=== PATIENT | female | born 1955 | race Hispanic/Latino ===

== ENCOUNTER 2017-10-05 23:51 | Emergency (ER) | payer SELFPAY ==
[~2017-10-05 23:51] MED LIST: AMLO5TAB4 PO; ASPI-1005 PO; LEVO500T2 PO; LISI-613 PO; METF10004 PO; METR500T PO; PRAV40TA3 PO
[2017-10-06] MEDS ORDERED: ACETAMINOPHEN-CODEINE ELIXIR 5 ML UDCUP ONE (00:03)
[2017-10-06 00:14] LABS: APPEARANCE,URINE Clear (CLEAR); BILIRUBIN,URINE Negative (NEGATIVE); COLOR,URINE Yellow (YELLOW); GLUCOSE, URINE (UA) 250 mg/dL (NEGATIVE); KETONES,URINE Negative (NEGATIVE); LEUKOCYTE ESTERASE ,URINE Trace (NEGATIVE); NITRATE,URINE Negative (NEGATIVE); OCCULT BLOOD,URINE Trace (NEGATIVE); PH,URINE >=9.0 (5.0-8.0); PROTEIN,URINE Negative (NEGATIVE); UROBILINOGEN,URINE 0.2 mg/dL (0.2-1.0)
[2017-10-06 00:26] LABS: BACTERIA,URINE Rare /HPF (None Seen); RBC,URINE 0-1 /HPF (0-1); SQUAMOUS EPITHELIAL CELL,UR 0-2 /HPF (0-2); WBC,URINE 0-1 /HPF (0-1)
[2017-10-06 00:27] LABS: BASOPHILS % (AUTO) 0.8 % (0.0-5.0); HEMATOCRIT 37.4 % (36-48); LYMPHOCYTES % (AUTO) 31.1 % (21.0-51.0); MEAN CORPUSCULAR HEMOGLOBIN 27.4 pg (27.0-33.0); MEAN CORPUSCULAR HGB CONC 33.2 g/dL (32.0-36.0); MEAN CORPUSCULAR VOLUME 82.4 fL (79-99); MONOCYTES % (AUTO) 5.6 % (3.0-13.0); NEUTROPHILS % (AUTO) 61.5 % (40.0-77.0); PLATELET COUNT (AUTO) 356 K/uL (130-400); RED BLOOD CELL COUNT(AUTO) 4.53 MIL/uL (4.00-5.50); RED CELL DISTRIBUTION WIDTH 13.7 % (11.0-15.5); WHITE BLOOD COUNT (AUTO) 11.1 K/uL (4.8-10.8)
[2017-10-06 00:40] LABS: CREATININE 0.8 mg/dL (0.5-1.5); POTASSIUM 3.7 mmol/L (3.5-5.1)
[2017-10-06 00:44] LABS: ALBUMIN 4.2 g/dL (3.5-5.0); BILIRUBIN,TOTAL 0.3 mg/dL (0.2-1.0); TOTAL PROTEIN, SERUM 8.1 g/dL (6.0-8.3)
[2017-10-06] MEDS ORDERED: SODIUM CHLORIDE 0.9% 1000ML 1,000 ML IV ONE (00:53)
[2017-10-06] MEDS ORDERED: IOPAMIDOL-370 75 ML VIAL IV ONE (00:57)
== END 2017-10-06 02:42 | disposition home or self-care (01) ==
LOC: EDH 23:51
DX: K52.9 Noninfective gastroenteritis and colitis, unspecified (principal); I10 Essential (primary) hypertension; E11.9 Type 2 diabetes mellitus without complications; Z88.6 Allergy status to analgesic agent; Z90.710 Acquired absence of both cervix and uterus; Z90.49 Acquired absence of other specified parts of digestive tract
CPT/HCPCS: 36415; 74177; 80053; 81001; 83690; 84484; 85025; 93005; 96360; 96361; 99285; J7030; Q9967

== ENCOUNTER 2018-03-02 10:25 | Emergency (ER) | payer SELFPAY ==
[~2018-03-02 10:25] MED LIST changes: +METF-446 PO; -METF10004 PO
[2018-03-02 10:49] LABS: APPEARANCE,URINE Clear (CLEAR); BILIRUBIN,URINE Negative (NEGATIVE); COLOR,URINE Yellow (YELLOW); GLUCOSE, URINE (UA) Negative (NEGATIVE); KETONES,URINE Trace mg/dL (NEGATIVE); LEUKOCYTE ESTERASE ,URINE Trace (NEGATIVE); NITRATE,URINE Negative (NEGATIVE); OCCULT BLOOD,URINE Moderate (NEGATIVE); PROTEIN,URINE POS 1+ (NEGATIVE)
[2018-03-02 10:58] LABS: BACTERIA,URINE Rare /HPF (None Seen); WBC,URINE 0-1 /HPF (0-1)
[2018-03-02 10:59] LABS: MUCUS,URINE Few LPF (None Seen)
[2018-03-02] MEDS ORDERED: KETOROLAC TROMETHAMINE 15MG/ML ONE (11:11)
== END 2018-03-02 12:54 | disposition home or self-care (01) ==
LOC: EDH 10:25
DX: M62.838 Other muscle spasm (principal); M54.5 Low back pain; E11.9 Type 2 diabetes mellitus without complications; I10 Essential (primary) hypertension; Z88.6 Allergy status to analgesic agent; Z91.018 Allergy to other foods
CPT/HCPCS: 74176; 81001; 96372; 99285; J1885

== ENCOUNTER 2022-09-04 18:34 | Observation (INO) | payer OTHER ==
[~2022-09-04] VITALS: Ht 162.6 cm; Wt 61.2 kg
[~2022-09-04 18:34] MED LIST changes: -LISI-613 PO; +LISI20TA24 PO
[2022-09-04 18:47] LABS: BASOPHILS % (AUTO) 0.3 % (0.0-5.0); EOSINOPHILS % (AUTO) 1.1 % (0.0-8.0); HEMATOCRIT 40.1 % (36-48); LYMPHOCYTES % (AUTO) 32.3 % (21.0-51.0); MEAN CORPUSCULAR HGB CONC 32.9 g/dL (32.0-36.0); MONOCYTES % (AUTO) 8.1 % (3.0-13.0); NEUTROPHILS % (AUTO) 57.9 % (40.0-77.0); PLATELET COUNT (AUTO) 366 K/uL (130-400); RED BLOOD CELL COUNT(AUTO) 4.72 MIL/uL (4.00-5.50); RED CELL DISTRIBUTION WIDTH 13.2 % (11.0-15.5); WHITE BLOOD COUNT (AUTO) 9.5 K/uL (4.8-10.8)
[2022-09-04 18:56] LABS: CREATININE 0.6 mg/dL (0.5-1.5); POTASSIUM 3.5 mmol/L (3.5-5.1)
[2022-09-04 19:04] LABS: ALBUMIN 4.2 g/dL (3.5-5.0); MAGNESIUM 1.8 mg/dL (1.80-2.40); TOTAL PROTEIN, SERUM 8.2 g/dL (6.0-8.3)
[2022-09-04] MEDS ORDERED: ONDANSETRON 4MG INJ IV PRN (22:00)
[2022-09-04] MEDS ORDERED: MORPHINE 4 MG SYG IV PRN (22:00)
[2022-09-04] MEDS ORDERED: ACETAMINOPHEN 325 MG TAB PO PRN ×2 (22:00)
[2022-09-04] MEDS ORDERED: NITROGLYCERIN 1GM OINT 1 INCH/1GM TD SCH (22:00)
[2022-09-04] MEDS ORDERED: ASPIRIN 81MG CHEW TAB PO ONE (22:00)
[2022-09-04] MEDS ORDERED: MORPHINE 2 MG SYG IV PRN (22:00)
[2022-09-04 22:18] LABS: CREATININE 0.6 mg/dL (0.5-1.5)
[2022-09-05 01:15] VITALS: BP 163/77
[2022-09-05] MEDS ORDERED: LOSA50TA64 PO (02:02)
[2022-09-05] MEDS ORDERED: GLIP5TAB11 PO (02:02)
[2022-09-05] MEDS ORDERED: AMLO-257 PO (02:02)
[2022-09-05] MEDS ORDERED: OMEP20CA12 PO (02:02)
[2022-09-05] MEDS ORDERED: METF-446 PO (02:02)
[2022-09-05 04:00] VITALS: BP 131/62
[2022-09-05 04:39] LABS: BASOPHILS % (AUTO) 0.4 % (0.0-5.0); EOSINOPHILS % (AUTO) 1.2 % (0.0-8.0); HEMATOCRIT 35.9 % (36-48); LYMPHOCYTES % (AUTO) 27.9 % (21.0-51.0); MEAN CORPUSCULAR HGB CONC 32.9 g/dL (32.0-36.0); MEAN CORPUSCULAR VOLUME 85.3 fL (79-99); MONOCYTES % (AUTO) 9.6 % (3.0-13.0); NEUTROPHILS % (AUTO) 60.7 % (40.0-77.0); PLATELET COUNT (AUTO) 304 K/uL (130-400); RED BLOOD CELL COUNT(AUTO) 4.21 MIL/uL (4.00-5.50); RED CELL DISTRIBUTION WIDTH 13.3 % (11.0-15.5); WHITE BLOOD COUNT (AUTO) 9.2 K/uL (4.8-10.8)
[2022-09-05 04:54] LABS: MAGNESIUM 1.7 mg/dL (1.80-2.40); PHOSPHORUS 3.2 mg/dL (2.5-4.9)
[2022-09-05] MEDS ORDERED: NITROGLYCERIN 1GM OINT 1 INCH/1GM TD SCH (06:30)
[2022-09-05 07:41] VITALS: BP 137/72
[2022-09-05] MEDS ORDERED: ENOXAPARIN SODIUM 40 MG/0.4 ML SYRINGE SQ SCH (09:00)
[2022-09-05] MEDS ORDERED: FAMOTIDINE 20MG TAB PO SCH (09:00)
[2022-09-05] MEDS ORDERED: ASPIRIN 81MG CHEW TAB PO SCH (09:00)
[2022-09-05] MEDS ORDERED: AMLODIPINE 5 MG TAB PO ONE (10:00)
[2022-09-05] MEDS ORDERED: MAGNESIUM 2GM PREMIX 50ML 50 ML IV PRN (10:00)
[2022-09-05 10:34] LABS: APPEARANCE,URINE CLEAR (CLEAR); BILIRUBIN,URINE NEGATIVE (NEGATIVE); COLOR,URINE COLORLESS (YELLOW); GLUCOSE, URINE (UA) 150 mg/dL (NEGATIVE); KETONES,URINE NEGATIVE (NEGATIVE); LEUKOCYTE ESTERASE ,URINE NEGATIVE Leu/uL (NEGATIVE); NITRATE,URINE NEGATIVE (NEGATIVE); OCCULT BLOOD,URINE SMALL (NEGATIVE); PROTEIN,URINE NEGATIVE (NEGATIVE); UROBILINOGEN,URINE 0.2 mg/dL (0.2-1.0)
[2022-09-05 10:37] LABS: SQUAMOUS EPITHELIAL CELL,UR RARE /HPF (0-2)
[2022-09-05 11:12] VITALS: BP 154/71
[2022-09-05] MEDS ORDERED: CEPH500C2 PO (12:06)
[2022-09-05] MEDS ORDERED: CEFTRIAXONE 1G VIAL IVPB ONE (12:30)
== END 2022-09-05 14:45 | disposition home or self-care (01) ==
LOC: EDH 18:34 → INTOOBSV 18:35 → EDHIP 18:35 → 4BH 09-05 01:15
PROVIDERS: ADMIT Internal Medicine; ATTEND Internal Medicine
DX: I20.0 Unstable angina (principal); E11.9 Type 2 diabetes mellitus without complications; I10 Essential (primary) hypertension; E78.5 Hyperlipidemia, unspecified; E78.00 Pure hypercholesterolemia, unspecified; Z90.710 Acquired absence of both cervix and uterus; Z51.5 Encounter for palliative care; Z59.7 Insufficient social insurance and welfare support; Z79.82 Long term (current) use of aspirin; Z79.899 Other long term (current) drug therapy
CPT/HCPCS: 96365; 96366; 96367; 99285; 83735 ×2; 84484 ×3; 80048; 80053; 83880; 85025 ×2; 36415 ×2; 71045; 93005; 84100; 82948 ×2; 81001; G0378 ×17; J3475; J0696; J1650